=== PATIENT | female | born 1965 | race Caucasian/White ===

== ENCOUNTER 2019-09-24 12:27 | Emergency (ER) | payer OTHER ==
[~2019-09-24] VITALS: Ht 165.1 cm; Wt 95.5 kg
[2019-09-24 12:36] VITALS: BP 127/81
[2019-09-24] MEDS ORDERED: TAM75C PO (14:15)
== END 2019-09-24 14:25 | disposition home or self-care (01) ==
LOC: ER 12:28
DX: J11.1 Influenza due to unidentified influenza virus with other respiratory manifestations (principal); Z88.2 Allergy status to sulfonamides; Z88.8 Allergy status to other drugs, medicaments and biological substances; Z79.899 Other long term (current) drug therapy
CPT/HCPCS: 87502; 87503; 99283

== ENCOUNTER 2020-12-25 13:31 | Emergency (ER) | payer BC ==
[~2020-12-25] VITALS: Ht 165.1 cm; Wt 109.0 kg
[2020-12-25] MEDS ORDERED: ketorolac trometh. 30mg/ml inj. IM ONE (16:05)
[2020-12-25 16:35] VITALS: BP 124/75
--- NOTE | 2020-12-25 16:37 | NUR ---
PT SEEN AND DC'D BY PROVIDER
== END 2020-12-25 16:37 | disposition home or self-care (01) ==
LOC: ER 13:32
DX: S39.092A Other injury of muscle, fascia and tendon of lower back, initial encounter (principal); Z88.1 Allergy status to other antibiotic agents; Z88.8 Allergy status to other drugs, medicaments and biological substances; W18.39XA Other fall on same level, initial encounter; Y93.89 Activity, other specified; Y92.89 Other specified places as the place of occurrence of the external cause; Y99.8 Other external cause status
CPT/HCPCS: 96372; 99283; J1885

== ENCOUNTER 2024-04-28 00:07 | Emergency (ER) | payer BC ==
[~2024-04-28] VITALS: Ht 165.1 cm; Wt 101.2 kg
[2024-04-28] MEDS ORDERED: MULT-1085 PO (01:13)
[2024-04-28 01:20] LABS: BILIRUBIN,URINE MODERATE (Neg); CLARITY,URINE SLIGHTLY CLOUDY (Clear); COLOR,URINE YELLOW (Yellow); GLUCOSE, URINE NEGATIVE (Neg); KETONES,URINE 15 mg/dl (Neg); LEUKOCYTE ESTERASE ,URINE NEGATIVE (Neg); NITRITES, URINE NEGATIVE (Neg); OCCULT BLOOD,URINE NEGATIVE (Neg); PROTEIN,URINE TRACE mg/dl (Neg)
[2024-04-28 01:21] LABS: URINE HCG NEGATIVE (NEG)
[2024-04-28 01:31] LABS: UA COLLECTION TYPE CLN CATCH MIDSTREAM
[2024-04-28 01:33] LABS: MUCUS STRANDS MODERATE /LPF (Neg); SQUAMOUS EPITHELIAL CELL,UR MANY /LPF (FEW)
[2024-04-28 01:33] LABS: BASOPHILS % (AUTO) 0.5 % (0-1); EOSINOPHILS % (AUTO) 0.1 % (0-6); HEMATOCRIT 41.1 % (35.0-45.0); HEMOGLOBIN 13.7 g/dl (12.0-16.0); LYMPHOCYTES # (AUTO) 1.1 X10'3 (1.1-4.8); LYMPHOCYTES % (AUTO) 13.4 % (21-51); MEAN CORPUSCULAR HEMOGLOBIN 29.5 PG (27.0-31.0); MEAN CORPUSCULAR HGB CONC 33.3 g/dL (33.0-36.5); MEAN CORPUSCULAR VOLUME 88.4 FL (78-98); MEAN PLATELET VOLUME 8.5 FL (7.4-10.4); MONOCYTES # (AUTO) 0.2 X10'3 (0-0.9); MONOCYTES % (AUTO) 1.9 % (2-12); NEUTROPHILS # (AUTO) 7.1 X10'3 (1.8-7.7); NEUTROPHILS % (AUTO) 84.1 % (42-75); PLATELET COUNT 253 X10'3 (140-440); RED BLOOD COUNT 4.65 X10'6 (4.20-5.60); RED CELL DISTRIBUTION WIDTH 13.5 % (11.5-14.5); WHITE BLOOD COUNT 8.4 X10'3 (4.5-11.0)
[2024-04-28 01:35] LABS: BACTERIA,URINE 1+ /HPF (Neg)
[2024-04-28 01:36] LABS: CAL OXALATE CRYSTALS 2+ /HPF (NEGATIVE)
[2024-04-28 01:38] LABS: RBC,URINE 0-2 /HPF (0-2)
[2024-04-28 01:39] LABS: WBC,URINE 20-30 /HPF (0-4)
[2024-04-28 01:49] LABS: ALANINE AMINOTRANSFERASE 36 U/L (12-78); ALBUMIN 3.7 G/DL (3.4-5.0); ALBUMIN/GLOBULIN RATIO 0.8 (1.1-1.5); ALKALINE PHOSPHATASE 82 IU/L (46-116); ANION GAP 9 (8-16); ASPARTATE AMINO TRANSFERASE 29 U/L (10-37); BILIRUBIN,TOTAL 0.6 MG/DL (0.1-1.0); BLOOD UREA NITROGEN 16 MG/DL (7-18); BUN/CREATININE RATIO 19.5 (10.0-20.0); CALCIUM 9.5 MG/DL (8.5-10.1); CHLORIDE 105 MMOL/L (99-107); CREATININE 0.82 MG/DL (0.40-0.90); GLUCOSE 157 MG/DL (70-104); LIPASE 27 U/L (16-77); POTASSIUM 3.6 MMOL/L (3.5-5.1); SODIUM 142 MMOL/L (135-145); TOTAL CARBON DIOXIDE 27.6 MMOL/L (24-32); TOTAL PROTEIN 8.1 G/DL (6.4-8.2); eCRCL 69 ML/MIN; eGFR 72 ML/MIN
[2024-04-28] MEDS: morphine 2 MG/ML inj. syringe IV PRN (04:18)
[2024-04-28] MEDS ORDERED: morphine 2 MG/ML inj. syringe IV PRN (05:05)
[2024-04-28] MEDS: ketorolac trometh 15mg/ml vial 15 MG/ML ML IV ONE (05:16)
[2024-04-28] MEDS: pantoprazole 40 MG vial IV ONE (05:17)
[2024-04-28] MEDS: normal saline 1000ml 1,000 ML IV ONE (05:18)
[2024-04-28] MEDS: normal saline 1000ML IV soln IVB ONE (05:23)
[2024-04-28 06:12] LABS: ETHANOL < 10 MG/DL (<10)
[2024-04-28] MEDS ORDERED: PANT20TA18 PO (06:56)
[2024-04-28] MEDS ORDERED: ONDA-243 PO (06:56)
[2024-04-28 07:27] VITALS: BP 171/96; PULSE 66; RESP 22; TEMP 98.4; O2SAT 96
[2024-04-28 09:36] LABS: URINE AMPHETAMINE SCREEN NEGATIVE (Neg); URINE BARBITUATE SCREEN NEGATIVE (Neg); URINE BENZODIAZEPINES SCREEN NEGATIVE (Neg); URINE CANNABINOID SCREEN NEGATIVE (Neg); URINE COCAINE SCREEN NEGATIVE (Neg); URINE METHADONE SCREEN NEGATIVE (Neg); URINE OPIATE SCREEN NEGATIVE (Neg); URINE PHENCYCLIDINE SCREEN NEGATIVE (Neg)
== END 2024-04-28 07:30 | disposition home or self-care (01) ==
LOC: ER 00:08
DX: K52.9 Noninfective gastroenteritis and colitis, unspecified (principal); E86.0 Dehydration; R10.11 Right upper quadrant pain; Z88.2 Allergy status to sulfonamides; Z79.899 Other long term (current) drug therapy
CPT/HCPCS: 36415; 80053; 80305; 80320; 81001; 81025; 83690; 85025; 93005; 96361; 96365; 96375; 96376; 99285; J1885; J2270; J2470; J7030